=== PATIENT | male | born 1955 | race Caucasian/White ===

== ENCOUNTER 2016-10-05 05:46 | Day surgery (SDC) | payer MEDICARE, OTHER ==
[2016-10-05] VITALS (11 sets, daily range): BP systolic 101–120; BP diastolic 56–84; PULSE 80–96; TEMP 97.7–99.1
[~2016-10-05] VITALS: Ht 170.2 cm; Wt 70.4 kg
[~2016-10-05 05:46] MED LIST: ADVAIR 250/28 DISKU1 IH; ALDACTONE 25MG25 M1 PO; ALEVE 220MG220 MG PO; AREDS 2 PO; ASPIRIN E.C. 8181 MG PO; CIPRO 500MG TA500 MG PO; CRESTOR40 MG PO; PLENDIL10 MG PO; PREDNISONE10 MG PO; PROAIR HFA0.09 MG/AC IH; PYRIDIUM 100MG100 MG PO; RT ADVAIR HFA 2312 G IH; SIMVASTATIN10 MG PO; SINGULAIR 110 MG/TAB PO; SPIRIVA INH IH; THEOPHYLLINE200 MG PO; TUMS500 MG PO; VENTOLIN0.09 MG IH; VITAMIN D 1001000 IU PO; [UNRECOGNIZED DRUG - OTHER] PO
[2016-10-05] MEDS ORDERED: RT ADVAIR HFA 2312 G IH (06:42)
[2016-10-05] MEDS ORDERED: COLACE 100100 MG/CAP PO (06:46)
[2016-10-05] MEDS ORDERED: NORCO 325 MG-51 TAB PO (06:49)
[2016-10-05] MEDS ORDERED: OXYGEN MC (06:57)
== END 2016-10-05 18:32 | disposition home or self-care (01) ==
LOC: SDCO 05:46 → SURG 08:23 → SDCO 18:32
DX: C67.1 Malignant neoplasm of dome of bladder (principal); R31.0 Gross hematuria; J44.9 Chronic obstructive pulmonary disease, unspecified; I10 Essential (primary) hypertension; G47.33 Obstructive sleep apnea (adult) (pediatric); I71.4 Abdominal aortic aneurysm, without rupture; Z87.891 Personal history of nicotine dependence
CPT/HCPCS: OP; A9284; J0690; J1100; J2175; J2405; J2704; J3010; J7120; J9280

== ENCOUNTER 2016-10-19 01:50 | Observation (INO) | payer MEDICARE, OTHER ==
[2016-10-19] VITALS (13 sets, daily range): BP systolic 92–119; BP diastolic 49–74; PULSE 74–93; TEMP 96–99
[~2016-10-19] VITALS: Ht 170.2 cm; Wt 72.8 kg
[~2016-10-19 01:50] MED LIST changes: +COLACE 100100 MG/CAP PO; +NORCO 325 MG-51 TAB PO; +OXYGEN MC
[2016-10-19 05:12] LABS: MAGNESIUM 1.6 mg/dL (1.6-2.3); POTASSIUM 3.6 mmol/L (3.4-5.0)
[2016-10-19 07:39] LABS: CALCIUM 8.4 mg/dL (8.4-10.2); CREATININE, serum 0.9 mg/dL (0.66-1.25); POTASSIUM 3.9 mmol/L (3.4-5.0)
[2016-10-20 01:11] VITALS: BP 115/71; PULSE 86; TEMP 98.2
[2016-10-20 05:47] VITALS: BP 107/72; PULSE 67; TEMP 97.6
[2016-10-20 06:41] LABS: HEMATOCRIT 46.1 % (42.0-52.0); MEAN CELL VOLUME 94 fl (80.0-100.0); MEAN CORPUSCULAR HEMOGLOBIN 30 pg (27.0-31.0); MEAN CORPUSCULAR HGB CONC 33 g/dl (33.0-37.0); MEAN PLATELET VOLUME 9.7 fl (7.4-10.4); PLATELET COUNT 254 K/mm3 (130-400); RED BLOOD COUNT 4.93 M/mm3 (4.20-5.60); REDCELL DISTRIBUTION WIDTH-CV 13.8 % (11.5-14.5)
[2016-10-20 06:57] LABS: CALCIUM 8.6 mg/dL (8.4-10.2); CREATININE, serum 0.85 mg/dL (0.66-1.25); MAGNESIUM 2.3 mg/dL (1.6-2.3); POTASSIUM 4.4 mmol/L (3.4-5.0)
[2016-10-20 09:35] VITALS: BP 91/63; PULSE 95; TEMP 98.5
== END 2016-10-20 13:05 | disposition home or self-care (01) ==
LOC: JCC 01:50 → SDCO 01:50 → JCC 01:51 → SDCO 01:52 → JCC 01:52 → SDCO 22:09 → JCC 10-20 13:05
PROVIDERS: Nurse Practitioner Family; Surgery
DX: K35.80 Unspecified acute appendicitis (principal); N32.0 Bladder-neck obstruction; I10 Essential (primary) hypertension; J44.9 Chronic obstructive pulmonary disease, unspecified; G47.33 Obstructive sleep apnea (adult) (pediatric); E87.6 Hypokalemia; E78.5 Hyperlipidemia, unspecified; Z85.51 Personal history of malignant neoplasm of bladder; Z87.891 Personal history of nicotine dependence
CPT/HCPCS: 99223-AI; A4315; G0378; J1100; J1170; J1720; J2370; J2405; J2543; J2704; J2710; J2765; J3010; J3475; J7050; J7120

== ENCOUNTER 2021-11-24 14:15 | Outpatient (RCR) | payer MEDICARE, OTHER | END 2021-11-27 | disposition home or self-care (01) | LOC: WSPT | DX: M79.662 Pain in left lower leg (principal) ==

== ENCOUNTER 2021-12-12 12:45 | Outpatient (RCR) | payer MEDICARE, OTHER | END 2021-12-28 | disposition home or self-care (01) | LOC: WSPT | DX: M79.662 Pain in left lower leg (principal) ==